=== PATIENT | male | born 1970 | race American Indian/Alaskan Native ===

== ENCOUNTER 2018-08-20 03:52 | Emergency (ER) | payer SELFPAY ==
--- NOTE | 2018-08-20 04:57 | XRay Report ---
FINAL REPORT PROCEDURE: XR CHEST ROUTINE 2V TECHNIQUE: PA and lateral chest radiographs were obtained. CPT 43238 HISTORY: sob COMPARISON: No prior studies are available for comparison. FINDINGS: Heart: Normal. Mediastinum/Vessels: Normal. Lungs/Pleural space: Normal. Bony thorax: No acute osseous abnormality. Other: IMPRESSION: Normal examination.
[2018-08-20 05:00] LABS: Hematocrit 43.5 % (35.5-45.6); Hemoglobin 14.5 gm/dl (11.8-15.2); Mean Corpuscular HGB Conc 33 % (32-34); Mean Corpuscular Hemoglobin 31 pg (28-32); Mean Corpuscular Volume 94 fl (84-94); Platelet Count 237 K/mm3 (140-440); Red Blood Count 4.62 M/mm3 (3.65-5.03); Red Cell Distribution Width 14.3 % (13.2-15.2)
[2018-08-20 05:28] LABS: BUN/Creatinine Ratio 13; Blood Urea Nitrogen 16 mg/dL (9-20); Calcium 8.9 mg/dL (8.4-10.2); Hemolysis Index 7
[2018-08-20 05:58] LABS: Basophils % (Manual) 0 % (0.0-1.8); Platelet Estimate Consistent w Auto; RBC Morphology Normal; Total Cells Counted 100
[2018-08-20] MEDS ORDERED: DELTASONE PO ONE (06:30)
[2018-08-20] MEDS ORDERED: ATROVENT IH ONE ×2 (06:30→09:24)
[2018-08-20] MEDS ORDERED: PROVENTIL IH ONE ×2 (06:30→09:24)
--- NOTE | 2018-08-20 06:40 | Emergency Department Report ---
HPI - General Chief Complaint: Chest Pain Time Seen by Provider: 08/20/18 06:24 - HPI HPI: Room 23 The patient is a 48-year-old male presenting with a chief complaint of shortness of breath and chest pressure. The patient states for the past 1-2 months every night. Develops chest pressure and shortness of breath. The patient states albuterol usually helps. Patient admits to a cough productive of white sputum. Patient denies nausea/vomiting or diaphoresis. Patient denies having a history of fever. Patient currently denies any chest discomfort but just complains of shortness of breath. Location: Lungs Duration: 1-2 months Quality: Shortness of breath Severity: Moderate Modifying factors: [see above] Context: [see above] Mode of transportation: [not driving] ED Past Medical Hx - Past Medical History Previous Medical History?: Yes Hx Asthma: Yes - Surgical History Past Surgical History?: No - Family History Family history: no significant - Social History Smoking Status: Current Every Day Smoker (1 pack per day) Substance Use Type: Alcohol (occasional), Marijuana - Medications Home Medications: Home Medications Medication Instructions Recorded Confirmed Last Taken Type ALBUTEROL Inhaler (OR & NICU) 2 puff IH QID PRN #1 inhalation 08/20/18 Unknown Rx [Proair] Amoxicillin [Trimox CAP] 500 mg PO BID #14 capsule 08/20/18 Unknown Rx Prednisone [predniSONE 10 mg 10 mg PO .TAPER #1 tab.ds.pk 08/20/18 Unknown Rx (6-Day Pack, 21 Tabs)] ED Review of Systems ROS: Stated complaint: CHEST PAIN Other details as noted in HPI Constitutional: denies: diaphoresis Eyes: denies: eye pain ENT: denies: throat pain Respiratory: cough, shortness of breath Cardiovascular: chest pain Endocrine: no symptoms reported Gastrointestinal: denies: nausea, vomiting Genitourinary: denies: dysuria Musculoskeletal: denies: back pain Neurological: denies: headache Physical Exam - Physical Exam Vital Signs: Vital Signs 08/20/18 04:15 Temperature 98.0 F Pulse Rate 52 L Respiratory 20 Rate Blood Pressure 157/102 O2 Sat by Pulse 99 Oximetry Physical Exam: GENERAL: The patient is well-developed well-nourished male lying on stretcher not appearing to be in acute distress. [] HEENT: Normocephalic. Atraumatic. Extraocular motions are intact. Patient has moist mucous membranes. NECK: Supple. Trachea midline CHEST/LUNGS: Diffuse faint wheezing. There is no respiratory distress noted. HEART/CARDIOVASCULAR: Regular. There is no tachycardia. There is no gallop rub or murmur. ABDOMEN: Abdomen is soft, nontender. Patient has normal bowel sounds. There is no abdominal distention. SKIN: There is no rash. There is no edema. There is no diaphoresis. NEURO: The patient is awake, alert, and oriented. The patient is cooperative. The patient has normal speech MUSCULOSKELETAL: There is no evidence of acute injury. ED Course Vital Signs 08/20/18 04:15 Temperature 98.0 F Pulse Rate 52 L Respiratory 20 Rate Blood Pressure 157/102 O2 Sat by Pulse 99 Oximetry - Reevaluation(s) Reevaluation #1: 08/20/18 10:25 Patient resting comfortably. No acute distress. Lungs clear to auscultation bilaterally ED Medical Decision Making - Lab Data Result diagrams: 08/20/18 04:28 08/20/18 04:28 - Radiology Data Radiology results: report reviewed (chest x-ray), image reviewed (chest x-ray) Findings [facility] [address] [place] [address] XRay Report Signed Patient: LEOPOLDO JEAN JR MR#: [id number] : 1970 Acct:[id number] Age/Sex: 48 / M ADM Date: 08/20/18 Loc: ED Attending Dr: Ordering Physician: CARLOS DUQUE MD Date of Service: 08/20/18 Procedure(s): XR chest routine 2V Accession Number(s): [id number] cc: ED MD DUNIA Fluoro Time In Minutes: FINAL REPORT PROCEDURE: XR CHEST ROUTINE 2V TECHNIQUE: PA and lateral chest radiographs were obtained. CPT 51507 HISTORY: sob COMPARISON: No prior studies are available for comparison. FINDINGS: Heart: Normal. Mediastinum/Vessels: Normal. Lungs/Pleural space: Normal. Bony thorax: No acute osseous abnormality. Other: IMPRESSION: Normal examination. Transcribed By: CO Dictated By: BLESSING WETZEL MD Electronically Authenticated By: BLESSING WETZEL MD Signed Date/Time: 08/20/18454 DD/ 4 TD/TT: 08/20/18 0455 - Differential Diagnosis COPD, CHF, ACS, pneumonia, bronchitis Critical care attestation.: If time is entered above; I have spent that time in minutes in the direct care of this critically ill patient, excluding procedure time. ED Disposition Clinical Impression: Shortness of breath, Cough, Bronchitis Disposition: TO HOME OR SELFCARE Is pt being admited?: No Does the pt Need Aspirin: No Condition: Stable Instructions: Chronic Bronchitis (ED), Acute Bronchitis (ED) Additional Instructions: Return to the emergency department immediately should you develop worsening symptoms, fever, inability to tolerate food or liquid or any other concerns. Prescriptions: ALBUTEROL Inhaler (OR & NICU) [Proair] 2 puff IH QID PRN #1 inhalation PRN Reason: Shortness Of Breath Amoxicillin [Trimox CAP] 500 mg PO BID #14 capsule Prednisone [predniSONE 10 mg (6-Day Pack, 21 Tabs)] 10 mg PO .TAPER #1 tab.ds.pk Referrals: [facility] [Outside] - 3-5 Days (Please follow up at the [facility] clinic to be established as a patient) MAR EDDY MD [Staff Physician] - 3-5 Days (Dr. Eddy is a primary physician. Please follow up with him or at the [facility] to be established as a patient) JUAN DANIEL LINDSAY MD [Staff Physician] - 3-5 Days (Dr. Lindsay is a mill operator. Please follow up with him for further evaluation) Time of Disposition: 10:28
[2018-08-20 08:33] VITALS: BP 150/101
== END 2018-08-20 10:46 | disposition home or self-care (01) ==
LOC: ED 03:52
DX: J45.909 Unspecified asthma, uncomplicated (principal); F17.200 Nicotine dependence, unspecified, uncomplicated; F12.10 Cannabis abuse, uncomplicated
CPT/HCPCS: 36415; 71046; 80048; 83880; 84484; 85007; 85025; 93005; 93010; 94640; 99285; J7512